=== PATIENT | male | born 1960 | race African-American/Black ===

== ENCOUNTER 2021-02-24 10:21 | Emergency (ER) | payer OTHER ==
[2021-02-24 10:28] VITALS: TEMP 98.4; BMI 20.3
[2021-02-24] MEDS ORDERED: ALBUTEROL SO4 2.5/IPRATROPIUM 0.5 INH SOL 3 ML VIAL.NEB. NEB ONE ×2 (10:51→10:55)
[2021-02-24] MEDS ORDERED: predniSONE 20 MG TABLET (UD) PO ONE (10:51)
[2021-02-24] MEDS ORDERED: predniSONE 20 MG TABLET (UD) ONE (11:15)
[2021-02-24] MEDS ORDERED: AZITHROMYCIN 250 MG TABLET PO ONE (12:44)
[2021-02-24] MEDS ORDERED: AZITHROMYCIN 250 MG TABLET ONE (12:50)
[2021-02-24 12:55] VITALS: BP 141/70; PULSE 93
== END 2021-02-24 13:04 | disposition home or self-care (01) ==
LOC: JER 10:21
PROC: 3E0F7GC Introduction of Other Therapeutic Substance into Respiratory Tract, Via Natural or Artificial Opening (ICD-10-PCS; principal; 2021-02-24)
DX: J45.909 Unspecified asthma, uncomplicated (principal)
CPT/HCPCS: 99284-25

== ENCOUNTER 2023-05-09 09:11 | Emergency (ER) | payer OTHER ==
[2023-05-09 09:39] VITALS: BMI 20.3
[2023-05-09] MEDS ORDERED: ALBUTEROL SO4 2.5/IPRATROPIUM 0.5 INH SOL 3 ML VIAL.NEB. NEB ONE ×2 (09:43→09:47)
[2023-05-09] MEDS ORDERED: AZITHROMYCIN 250 MG TABLET PO ONE (09:52)
[2023-05-09] MEDS ORDERED: predniSONE 20 MG TABLET (UD) PO ONE (09:52)
[2023-05-09] MEDS ORDERED: AZITHROMYCIN 500 MG TABLET ONE (10:02)
[2023-05-09] MEDS ORDERED: predniSONE 20 MG TABLET (UD) ONE (10:02)
[2023-05-09 13:22] VITALS: BP 129/75; PULSE 104; RESP 30; TEMP 100.4
== END 2023-05-09 13:46 | disposition home or self-care (01) ==
LOC: JER 09:11
PROC: 3E0F7GC Introduction of Other Therapeutic Substance into Respiratory Tract, Via Natural or Artificial Opening (ICD-10-PCS; principal; 2023-05-09)
DX: R06.02 Shortness of breath (principal); R05.9 Cough, unspecified; R50.9 Fever, unspecified; J44.1 Chronic obstructive pulmonary disease with (acute) exacerbation; Z20.822 Contact with and (suspected) exposure to COVID-19
CPT/HCPCS: 0241U-QW; 71045-TC-FY; 93005; 93010; 94640; 99285-25

== ENCOUNTER 2023-08-08 07:39 | Inpatient (IN) | payer OTHER ==
[2023-08-08] MEDS ORDERED: DEXAMETHASONE SOD PHOSPHATE 10 MG/1 ML VIAL IVPUSH ONE (08:09)
[2023-08-08] MEDS ORDERED: MAGNESIUM SULF 50% (8.12 MEQ/2 ML-1 GM VIAL) IVPB ONE (08:10)
[2023-08-08] MEDS ORDERED: MAGNESIUM SULFATE IN WATER 2 GM/50 ML IVPB IVPB ONE (08:16)
[2023-08-08] MEDS ORDERED: DEXAMETHASONE SOD PHOSPHATE 10 MG/1 ML VIAL ONE (08:17)
[2023-08-08 08:23] LABS: VENOUS BASE EXCESS 3.9 mmol/L (-2-2); VENOUS O2 SATURATION 92.3 % (70-80); VENOUS PCO2 62.7 mmHg (38-52); VENOUS PH 7.323 (7.310-7.410)
[2023-08-08] MEDS: ALBUTEROL SO4 2.5/IPRATROPIUM 0.5 INH SOL 3 ML VIAL.NEB. NEB SCH (08:29)
[2023-08-08 08:30] LABS: BASO % 0.5 % (0-2.0); EOS % 0.7 % (0-4.5); HEMATOCRIT 38.5 % (35.4-49); HEMOGLOBIN 12.8 GM/dL (11.7-16.9); LYMPH % 7.6 % (8-40); MCH 27.2 pg (25.7-33.7); MCHC 33.2 g/dl (32.0-35.9); MEAN CELL VOLUME 81.9 fl (80-96); MEAN PLT VOLUME 7.5 fl (7.5-11.1); MONO % 10.9 % (3.8-10.2); NEUT % 80.3 % (42.8-82.8); PLATELET COUNT 315 10^3/uL (134-434); RDW 14.9 % (11.9-15.9); WHITE BLOOD COUNT 10.5 K/mm3 (4.0-10.0)
[2023-08-08 08:40] LABS: INR 1.26 (0.83-1.09); PROTHROMBIN TIME (PATIENT) 14.6 SEC (9.7-13.0)
[2023-08-08 08:42] LABS: ACTIVATED PTT 29.1 SECONDS (25.2-36.5)
[2023-08-08 08:49] LABS: POTASSIUM 3.9 mmol/L (3.5-5.1)
[2023-08-08 08:50] LABS: CALCIUM 8.9 mg/dL (8.5-10.1)
[2023-08-08 08:51] LABS: ALBUMIN 2.9 g/dl (3.4-5.0); BLOOD UREA NITROGEN 15.4 mg/dL (7-18)
[2023-08-08 08:52] LABS: MAGNESIUM 1.9 mg/dL (1.8-2.4)
[2023-08-08 08:54] LABS: CREATININE 0.9 mg/dL (0.55-1.3)
[2023-08-08 08:56] LABS: BILIRUBIN,TOTAL 0.4 mg/dL (0.2-1); TOT PROT 7.5 g/dl (6.4-8.2)
[2023-08-08 08:59] LABS: N-TERMINAL BNP 276.3 pg/ml (5-125)
[2023-08-08] MEDS ORDERED: AMPICILLIN NA/SULBACTAM NA 3 GM in SODIUM CHLORIDE 100 ML IVPB ONE (13:03)
[2023-08-08] MEDS ORDERED: AMPICILLIN NA/SULBACTAM NA 3 GM VIAL ONE (13:09)
[2023-08-08] MEDS ORDERED: CEFTRIAXONE 1 GM in DEXTROSE 5%-WATER - 100 ML IVPB ONE (13:14)
[2023-08-08] MEDS ORDERED: AZITHROMYCIN IVPB 500 MG in DEXTROSE 5%-WATER - 250 ML IVPB ONE (13:14)
[2023-08-08] MEDS ORDERED: ALBUTEROL SO4 2.5/IPRATROPIUM 0.5 INH SOL 3 ML VIAL.NEB. NEB PRN (13:34)
[2023-08-08] MEDS ORDERED: CEFTRIAXONE 1 GM/50 ML BAG ONE (14:14)
[2023-08-08] MEDS ORDERED: AZITHROMYCIN IVPB 500 MG/250 ML BAG IVPB ONE (14:32)
[2023-08-08] MEDS ORDERED: ACETAMINOPHEN 500 MG TABLET (FP) PO PRN (14:42)
[2023-08-08] MEDS ORDERED: ACETAMINOPHEN 500 MG TABLET (FP) ONE (14:45)
[2023-08-08] MEDS ORDERED: PIPERACILLIN/TAZOB 3.375 GM 3.375 GM/50 ML BAG IVPB ONE (17:36)
[2023-08-08] MEDS ORDERED: methylPREDNISolone NA SUCC 40 MG/1 ML VIAL ONE (17:36)
[2023-08-08] MEDS: PIPERACILLIN/TAZOB 3.375 GM 3.375 GM in DEXTROSE 5%-WATER - 50 ML IVPB SCH (17:42)
[2023-08-08] MEDS: methylPREDNISolone NA SUCC 40 MG/1 ML VIAL IVPUSH SCH (17:42)
[2023-08-08] MEDS ORDERED: HEPARIN NA (PORCINE) 5,000 UNITS/ML 1ML VIAL ONE (22:17)
[2023-08-08] MEDS ORDERED: DOXYCYCLINE HYCLATE 100 MG VIAL ONE (22:17)
[2023-08-08] MEDS: DOXYCYCLINE INJECTION 100 MG in DEXTROSE 5%-WATER 100 ML IVPB SCH (22:30)
[2023-08-08] MEDS: HEPARIN NA (PORCINE) 5,000 UNITS/ML 1ML VIAL SQ SCH (22:30)
[2023-08-09] MEDS ORDERED: PIPERACILLIN/TAZOB 3.375 GM 3.375 GM/50 ML BAG IVPB ONE (01:57)
[2023-08-09] MEDS ORDERED: methylPREDNISolone NA SUCC 40 MG/1 ML VIAL ONE (01:57)
[2023-08-09] MEDS ORDERED: PIPERACILLIN/TAZOB 3.375 GM 3.375 GM in DEXTROSE 5%-WATER - 50 ML IVPB SCH (02:00)
[2023-08-09] MEDS: methylPREDNISolone NA SUCC 40 MG/1 ML VIAL IVPUSH SCH ×3 (02:08→17:32)
[2023-08-09] MEDS: PIPERACILLIN/TAZOB 3.375 GM 3.375 GM in DEXTROSE 5%-WATER - 50 ML IVPB SCH ×3 (02:08→17:32)
[2023-08-09 08:04] LABS: POTASSIUM 4.8 mmol/L (3.5-5.1)
[2023-08-09 08:05] LABS: HEMATOCRIT 39.2 % (35.4-49); HEMOGLOBIN 12.4 GM/dL (11.7-16.9); MCH 26.5 pg (25.7-33.7); MCHC 31.6 g/dl (32.0-35.9); MEAN PLT VOLUME 7.8 fl (7.5-11.1); PLATELET COUNT 336 10^3/uL (134-434); RBC 4.67 M/mm3 (4.00-5.60); RDW 14.8 % (11.9-15.9); WHITE BLOOD COUNT 12.5 K/mm3 (4.0-10.0)
[2023-08-09 08:09] LABS: CALCIUM 9.3 mg/dL (8.5-10.1)
[2023-08-09] MEDS ORDERED: ALBUTEROL SO4 2.5/IPRATROPIUM 0.5 INH SOL 3 ML VIAL.NEB. NEB ONE (08:10)
[2023-08-09 08:13] LABS: CREATININE 0.9 mg/dL (0.55-1.3)
[2023-08-09 09:04] LABS: ANISOCYTOSIS 1+; MACROCYTOSIS 0
[2023-08-09] MEDS: ALBUTEROL SO4 2.5/IPRATROPIUM 0.5 INH SOL 3 ML VIAL.NEB. NEB SCH ×3 (10:00→20:15)
[2023-08-09] MEDS ORDERED: ALBUTEROL SO4 0.083% IH SOL 2.5 MG/3 ML VIAL.NEB. NEB PRN (10:33)
[2023-08-09] MEDS: DOXYCYCLINE INJECTION 100 MG in DEXTROSE 5%-WATER 100 ML IVPB SCH ×2 (10:48→22:46)
[2023-08-09] MEDS: HEPARIN NA (PORCINE) 5,000 UNITS/ML 1ML VIAL SQ SCH ×2 (10:49→22:45)
[2023-08-09] MEDS: BUDESONIDE/FORMETEROL FUMARATE 160/4.5 mcg INHALER IH SCH ×2 (12:10→22:45)
[2023-08-09 14:36] VITALS: BMI 21.0
[2023-08-09] MEDS ORDERED: VANCOMYCIN/WATER FOR INJ (PEG) 1,000 MG/200 ML BAG IVPB SCH (15:00)
[2023-08-10] MEDS: PIPERACILLIN/TAZOB 3.375 GM 3.375 GM in DEXTROSE 5%-WATER - 50 ML IVPB SCH ×3 (02:09→17:53)
[2023-08-10] MEDS: methylPREDNISolone NA SUCC 40 MG/1 ML VIAL IVPUSH SCH ×3 (02:09→17:53)
[2023-08-10] MEDS: ALBUTEROL SO4 2.5/IPRATROPIUM 0.5 INH SOL 3 ML VIAL.NEB. NEB SCH ×2 (08:56→12:03)
[2023-08-10] MEDS ORDERED: FUROSEMIDE 40 MG/4 ML INJECTABLE VIAL IVPUSH ONE (09:53)
[2023-08-10] MEDS: HEPARIN NA (PORCINE) 5,000 UNITS/ML 1ML VIAL SQ SCH ×2 (10:51→22:13)
[2023-08-10] MEDS: BUDESONIDE/FORMETEROL FUMARATE 160/4.5 mcg INHALER IH SCH ×2 (10:53→22:13)
[2023-08-10] MEDS: DOXYCYCLINE INJECTION 100 MG in DEXTROSE 5%-WATER 100 ML IVPB SCH (12:11)
[2023-08-10] MEDS: TIOTROPIUM BROMIDE 2.5 MCG (SPIRIVA) RESPIMAT INHALER IH SCH (14:21)
[2023-08-11] MEDS: PIPERACILLIN/TAZOB 3.375 GM 3.375 GM in DEXTROSE 5%-WATER - 50 ML IVPB SCH ×3 (01:25→17:41)
[2023-08-11] MEDS: methylPREDNISolone NA SUCC 40 MG/1 ML VIAL IVPUSH SCH (01:25)
[2023-08-11] MEDS: ALBUTEROL SO4 0.083% IH SOL 2.5 MG/3 ML VIAL.NEB. NEB SCH ×4 (09:10→20:14)
[2023-08-11] MEDS: PANTOPRAZOLE 40 MG TABLET PO SCH (09:58)
[2023-08-11] MEDS: ENOXAPARIN NA (PORCINE) 40 MG/0.4 ML DISP.SYRIN SQ SCH ×2 (09:59→10:51)
[2023-08-11] MEDS: predniSONE 20 MG TABLET (UD) PO SCH ×2 (09:59→21:52)
[2023-08-11] MEDS: LACTOBACILLUS ACIDOPHILUS 1 TABLET PO SCH (09:59)
[2023-08-11] MEDS: TIOTROPIUM BROMIDE 2.5 MCG (SPIRIVA) RESPIMAT INHALER IH SCH (10:00)
[2023-08-11] MEDS: BUDESONIDE/FORMETEROL FUMARATE 160/4.5 mcg INHALER IH SCH ×2 (10:00→10:09)
[2023-08-11 10:24] LABS: HEMATOCRIT 43.8 % (35.4-49); HEMOGLOBIN 14.5 GM/dL (11.7-16.9); MCH 27.2 pg (25.7-33.7); MEAN CELL VOLUME 82.4 fl (80-96); MEAN PLT VOLUME 7.5 fl (7.5-11.1); PLATELET COUNT 393 10^3/uL (134-434); RBC 5.32 M/mm3 (4.00-5.60); RDW 14.9 % (11.9-15.9); WHITE BLOOD COUNT 15.7 K/mm3 (4.0-10.0)
[2023-08-11 11:07] LABS: ANISOCYTOSIS 0; MACROCYTOSIS 0
[2023-08-11 11:41] LABS: ALBUMIN 3.2 g/dl (3.4-5.0); BILIRUBIN,TOTAL 0.3 mg/dL (0.2-1); BLOOD UREA NITROGEN 25.2 mg/dL (7-18); CALCIUM 10.2 mg/dL (8.5-10.1); CREATININE 1.1 mg/dL (0.55-1.3); MAGNESIUM 2.6 mg/dL (1.8-2.4); PHOSPHOROUS 5.1 mg/dL (2.5-4.9); POTASSIUM 4.5 mmol/L (3.5-5.1); TOT PROT 8.6 g/dl (6.4-8.2)
[2023-08-11] MEDS ORDERED: LACTATED RINGERS SOLUTION 1,000 ML/1,000 ML INFUS.BAG IV SCH (12:15)
[2023-08-11] MEDS: BUDESONIDE 0.25 MG/2ML INH SUSP VIAL NEB SCH ×2 (18:30→20:15)
[2023-08-12] MEDS: PIPERACILLIN/TAZOB 3.375 GM 3.375 GM in DEXTROSE 5%-WATER - 50 ML IVPB SCH ×3 (01:26→18:19)
[2023-08-12] MEDS: ALBUTEROL SO4 0.083% IH SOL 2.5 MG/3 ML VIAL.NEB. NEB SCH ×4 (07:45→20:48)
[2023-08-12] MEDS: BUDESONIDE 0.25 MG/2ML INH SUSP VIAL NEB SCH ×2 (07:45→20:48)
[2023-08-12] MEDS: TIOTROPIUM BROMIDE 2.5 MCG (SPIRIVA) RESPIMAT INHALER IH SCH (09:37)
[2023-08-12] MEDS: predniSONE 20 MG TABLET (UD) PO SCH (09:37)
[2023-08-12] MEDS: ENOXAPARIN NA (PORCINE) 40 MG/0.4 ML DISP.SYRIN SQ SCH (09:37)
[2023-08-12] MEDS: PANTOPRAZOLE 40 MG TABLET PO SCH (09:37)
[2023-08-12] MEDS: LACTOBACILLUS ACIDOPHILUS 1 TABLET PO SCH (09:37)
[2023-08-12 11:11] LABS: HEMATOCRIT 40.7 % (35.4-49); HEMOGLOBIN 12.9 GM/dL (11.7-16.9); MCH 26.7 pg (25.7-33.7); MCHC 31.6 g/dl (32.0-35.9); MEAN CELL VOLUME 84.6 fl (80-96); MEAN PLT VOLUME 7.8 fl (7.5-11.1); PLATELET COUNT 348 10^3/uL (134-434); RBC 4.81 M/mm3 (4.00-5.60); WHITE BLOOD COUNT 11.9 K/mm3 (4.0-10.0)
[2023-08-12 11:29] LABS: POTASSIUM 4.8 mmol/L (3.5-5.1)
[2023-08-12 12:22] LABS: ANISOCYTOSIS 0; MACROCYTOSIS 0
[2023-08-12 12:43] LABS: BLOOD UREA NITROGEN 27.4 mg/dL (7-18); CALCIUM 9.3 mg/dL (8.5-10.1)
[2023-08-12 12:44] LABS: ALBUMIN 2.9 g/dl (3.4-5.0); MAGNESIUM 2.4 mg/dL (1.8-2.4)
[2023-08-12 12:46] LABS: CREATININE 1.1 mg/dL (0.55-1.3)
[2023-08-12 12:48] LABS: BILIRUBIN,TOTAL 0.2 mg/dL (0.2-1); PHOSPHOROUS 4.1 mg/dL (2.5-4.9); TOT PROT 7.1 g/dl (6.4-8.2)
[2023-08-12] MEDS ORDERED: LACTATED RINGERS SOLUTION 1,000 ML/1,000 ML INFUS.BAG IV SCH (18:15)
[2023-08-13] MEDS: PIPERACILLIN/TAZOB 3.375 GM 3.375 GM in DEXTROSE 5%-WATER - 50 ML IVPB SCH ×2 (01:40→10:58)
[2023-08-13] MEDS: ALBUTEROL SO4 0.083% IH SOL 2.5 MG/3 ML VIAL.NEB. NEB SCH ×4 (07:44→20:30)
[2023-08-13] MEDS: BUDESONIDE 0.25 MG/2ML INH SUSP VIAL NEB SCH ×2 (07:44→20:30)
[2023-08-13] MEDS ORDERED: predniSONE 20 MG TABLET (UD) PO SCH (10:00)
[2023-08-13 10:04] LABS: BASO % 0.1 % (0-2.0); HEMATOCRIT 38.8 % (35.4-49); HEMOGLOBIN 12.8 GM/dL (11.7-16.9); LYMPH % 12.3 % (8-40); MCH 27.4 pg (25.7-33.7); MCHC 33.1 g/dl (32.0-35.9); MEAN CELL VOLUME 82.8 fl (80-96); MEAN PLT VOLUME 7.5 fl (7.5-11.1); NEUT % 79.6 % (42.8-82.8); PLATELET COUNT 290 10^3/uL (134-434); RBC 4.69 M/mm3 (4.00-5.60); RDW 15.1 % (11.9-15.9); WHITE BLOOD COUNT 9.8 K/mm3 (4.0-10.0)
[2023-08-13 10:20] LABS: POTASSIUM 3.8 mmol/L (3.5-5.1)
[2023-08-13 10:22] LABS: CALCIUM 9.1 mg/dL (8.5-10.1)
[2023-08-13 10:23] LABS: ALBUMIN 2.8 g/dl (3.4-5.0); BLOOD UREA NITROGEN 22.5 mg/dL (7-18); MAGNESIUM 2.3 mg/dL (1.8-2.4)
[2023-08-13 10:26] LABS: PHOSPHOROUS 3.2 mg/dL (2.5-4.9)
[2023-08-13 10:28] LABS: BILIRUBIN,TOTAL 0.3 mg/dL (0.2-1); TOT PROT 6.8 g/dl (6.4-8.2)
[2023-08-13] MEDS: predniSONE 40 MG, predniSONE 10 MG PO SCH (10:58)
[2023-08-13] MEDS: ENOXAPARIN NA (PORCINE) 40 MG/0.4 ML DISP.SYRIN SQ SCH (10:58)
[2023-08-13] MEDS: PANTOPRAZOLE 40 MG TABLET PO SCH (10:58)
[2023-08-13] MEDS: LACTOBACILLUS ACIDOPHILUS 1 TABLET PO SCH (10:58)
[2023-08-13] MEDS: TIOTROPIUM BROMIDE 2.5 MCG (SPIRIVA) RESPIMAT INHALER IH SCH (10:59)
[2023-08-13] MEDS: AMOX TR/POT CLAV 875MG/125MG TABLETS (FP) PO SCH (18:01)
[2023-08-14] MEDS: ALBUTEROL SO4 0.083% IH SOL 2.5 MG/3 ML VIAL.NEB. NEB SCH ×4 (07:25→20:05)
[2023-08-14] MEDS: BUDESONIDE 0.25 MG/2ML INH SUSP VIAL NEB SCH ×2 (07:25→20:05)
[2023-08-14] MEDS: AMOX TR/POT CLAV 875MG/125MG TABLETS (FP) PO SCH ×2 (09:54→18:24)
[2023-08-14] MEDS: PANTOPRAZOLE 40 MG TABLET PO SCH (09:54)
[2023-08-14] MEDS: predniSONE 40 MG, predniSONE 10 MG PO SCH (09:54)
[2023-08-14] MEDS: ENOXAPARIN NA (PORCINE) 40 MG/0.4 ML DISP.SYRIN SQ SCH (09:54)
[2023-08-14] MEDS: LACTOBACILLUS ACIDOPHILUS 1 TABLET PO SCH (09:54)
[2023-08-14] MEDS: TIOTROPIUM BROMIDE 2.5 MCG (SPIRIVA) RESPIMAT INHALER IH SCH (09:54)
[2023-08-15] MEDS: ALBUTEROL SO4 0.083% IH SOL 2.5 MG/3 ML VIAL.NEB. NEB SCH ×2 (07:45→11:20)
[2023-08-15] MEDS: BUDESONIDE 0.25 MG/2ML INH SUSP VIAL NEB SCH (07:45)
[2023-08-15 09:27] VITALS: BP 114/65; PULSE 100; RESP 18; TEMP 97.8
[2023-08-15] MEDS: predniSONE 40 MG, predniSONE 10 MG PO SCH (09:37)
[2023-08-15] MEDS: ENOXAPARIN NA (PORCINE) 40 MG/0.4 ML DISP.SYRIN SQ SCH ×2 (09:38→09:42)
[2023-08-15] MEDS: LACTOBACILLUS ACIDOPHILUS 1 TABLET PO SCH (09:38)
[2023-08-15] MEDS: PANTOPRAZOLE 40 MG TABLET PO SCH (09:38)
[2023-08-15] MEDS: AMOX TR/POT CLAV 875MG/125MG TABLETS (FP) PO SCH (09:38)
[2023-08-15] MEDS: TIOTROPIUM BROMIDE 2.5 MCG (SPIRIVA) RESPIMAT INHALER IH SCH (09:42)
[2023-08-16] MEDS ORDERED: predniSONE 20 MG TABLET (UD) PO SCH (10:00)
== END 2023-08-15 12:42 | disposition home or self-care (01) | DRG 190 ==
LOC: JER 07:39 → JERBED 10:04 → J5S 08-09 09:06
PROVIDERS: ADMIT Internal Medicine; ATTEND Internal Medicine
DX: J44.1 Chronic obstructive pulmonary disease with (acute) exacerbation (principal); J96.01 Acute respiratory failure with hypoxia; L02.01 Cutaneous abscess of face; L03.211 Cellulitis of face; D86.0 Sarcoidosis of lung; E83.52 Hypercalcemia; Z86.11 Personal history of tuberculosis
CPT/HCPCS: 0241U-QW; 36415; 70487-TC; 71045-TC-FY; 71250-TC; 80048; 80053; 82728; 82803; 83540; 83550; 83605; 83735; 83880; 84100; 84484; 85025; 85610; 85730; 87070; 87205; 93005; 93010; 93306-TC; 94010; 94640; 94761; 97116-GP; 97161-GP; 99285-25; J1100; J1644; Q9967

== ENCOUNTER 2023-10-31 16:03 | Observation (INO) | payer OTHER ==
[2023-10-31] MEDS: ALBUTEROL SO4 2.5/IPRATROPIUM 0.5 INH SOL 3 ML VIAL.NEB. NEB SCH ×3 (16:47→23:12)
[2023-10-31] MEDS: methylPREDNISolone NA SUCC 125 MG/2 ML VIAL IVPUSH ONE (16:47)
[2023-10-31 16:49] LABS: VENOUS BASE EXCESS 3.1 mmol/L (-2-2); VENOUS O2 SATURATION 33.1 % (70-80); VENOUS PCO2 66.3 mmHg (38-52); VENOUS PH 7.296 (7.310-7.410)
[2023-10-31] MEDS ORDERED: methylPREDNISolone NA SUCC 125 MG/2 ML VIAL ONE (16:49)
[2023-10-31] MEDS ORDERED: ALBUTEROL SO4 2.5/IPRATROPIUM 0.5 INH SOL 3 ML VIAL.NEB. NEB ONE (16:49)
[2023-10-31 16:57] LABS: BASO % 0.7 % (0-2.0); EOS % 3.6 % (0-4.5); HEMATOCRIT 39.5 % (35.4-49); LYMPH % 35.7 % (8-40); MCH 28.2 pg (25.7-33.7); MEAN CELL VOLUME 85.7 fl (80-96); MEAN PLT VOLUME 7.6 fl (7.5-11.1); MONO % 10.4 % (3.8-10.2); NEUT % 49.6 % (42.8-82.8); PLATELET COUNT 237 10^3/uL (134-434); RBC 4.61 M/mm3 (4.00-5.60); RDW 15.2 % (11.9-15.9); WHITE BLOOD COUNT 4.8 K/mm3 (4.0-10.0)
[2023-10-31 17:02] LABS: INR 1.07 (0.83-1.09); PROTHROMBIN TIME (PATIENT) 12.4 SEC (9.7-13.0)
[2023-10-31 17:05] LABS: ACTIVATED PTT 31.1 SECONDS (25.2-36.5)
[2023-10-31 17:10] LABS: POTASSIUM 4.2 mmol/L (3.5-5.1)
[2023-10-31 17:13] LABS: CALCIUM 8.7 mg/dL (8.5-10.1)
[2023-10-31 17:14] LABS: ALBUMIN 3.8 g/dl (3.4-5.0)
[2023-10-31 17:18] LABS: BILIRUBIN,TOTAL 0.4 mg/dL (0.2-1); TOT PROT 7.5 g/dl (6.4-8.2)
[2023-10-31] MEDS ORDERED: ALBUTEROL SO4 0.083% IH SOL 2.5 MG/3 ML VIAL.NEB. NEB ONE (17:19)
[2023-10-31] MEDS: BUDESONIDE/FORMETEROL FUMARATE 160/4.5 mcg INHALER IH SCH (23:12)
[2023-10-31] MEDS: HEPARIN NA (PORCINE) 5,000 UNITS/ML 1ML VIAL SQ SCH (23:12)
[2023-11-01 02:28] VITALS: BMI 19.1
[2023-11-01] MEDS: BUDESONIDE/FORMETEROL FUMARATE 160/4.5 mcg INHALER IH SCH (06:14)
[2023-11-01] MEDS ORDERED: BUDESONIDE/FORMETEROL FUMARATE 160/4.5 mcg INHALER IH SCH (10:00)
[2023-11-01] MEDS: methylPREDNISolone NA SUCC 40 MG/1 ML VIAL IVPUSH SCH (10:08)
[2023-11-01] MEDS: PANTOPRAZOLE 40 MG TABLET PO SCH (10:08)
[2023-11-01 16:02] VITALS: RESP 20
[2023-11-02] MEDS: ENOXAPARIN NA (PORCINE) 40 MG/0.4 ML DISP.SYRIN SQ SCH (09:29)
[2023-11-02 10:52] VITALS: BP 127/67; PULSE 88; TEMP 98.3
== END 2023-11-02 11:08 | disposition home or self-care (01) ==
LOC: JER 16:03 → JERBED 17:41 → J8W 11-01 01:32
PROVIDERS: ADMIT Internal Medicine; ATTEND Nurse Practitioner Family
PROC: 3E0F7GC Introduction of Other Therapeutic Substance into Respiratory Tract, Via Natural or Artificial Opening (ICD-10-PCS; principal; 2023-10-31)
PROC: 3E033GC Introduction of Other Therapeutic Substance into Peripheral Vein, Percutaneous Approach (ICD-10-PCS; 2023-10-31)
DX: J44.1 Chronic obstructive pulmonary disease with (acute) exacerbation (principal); D86.9 Sarcoidosis, unspecified; Z91.148 Patient's other noncompliance with medication regimen for other reason; Z29.89 Encounter for other specified prophylactic measures; Z86.11 Personal history of tuberculosis
CPT/HCPCS: 0241U-QW; 36415; 71046-TC-FY; 80053; 82803; 84484; 85025; 85610; 85730; 86850; 86900; 86901; 93005; 93010; 94640; 96374; 96376; 99285-25; G0378; J1644

== ENCOUNTER 2025-03-13 10:26 | Emergency (ER) | payer OTHER ==
[2025-03-13 11:24] LABS: VENOUS BASE EXCESS 0.7 mmol/L (-2-2); VENOUS O2 SATURATION 55.4 % (70-80); VENOUS PCO2 55.8 mmHg (38-52); VENOUS PH 7.319 (7.310-7.410)
[2025-03-13 11:26] LABS: ABSOLUTE IMMATURE GRANULOCYTES 0.04 x10^3/uL (0.0-0.031); BASOPHILS # 0.02 x10^3/uL (0.01-0.08); EOSINOPHIL % 1.7 % (0.8-7.0); EOSINOPHILS # 0.11 x10^3/uL (0.04-0.54); MCHC 32.5 g/dl (32.3-36.5); MEAN CELL VOLUME 84.9 fl (79.0-92.2); MEAN PLT VOLUME 9.5 fl (9.4-12.4); MONOCYTE % 4.7 % (5.3-12.2); PLATELET COUNT 267 x10^3/uL (163-337)
[2025-03-13 11:31] VITALS: BMI 21.2
[2025-03-13] MEDS: ALBUTEROL SO4 2.5/IPRATROPIUM 0.5 INH SOL 3 ML VIAL.NEB. NEB SCH (11:35)
[2025-03-13 11:52] LABS: POTASSIUM 4.3 mmol/L (3.5-5.1)
[2025-03-13 11:53] LABS: CALCIUM 9.1 mg/dL (8.5-10.1)
[2025-03-13 11:54] LABS: ALBUMIN 3.5 g/dl (3.4-5.0); BLOOD UREA NITROGEN 13.6 mg/dL (7-18); MAGNESIUM 2.1 mg/dL (1.8-2.4)
[2025-03-13 11:59] LABS: BILIRUBIN,TOTAL 0.2 mg/dL (0.2-1); TOT PROT 7.1 g/dl (6.4-8.2)
[2025-03-13] MEDS ORDERED: ROCURONIUM BROMIDE 50 MG/5 ML VIAL ONE (12:10)
[2025-03-13] MEDS ORDERED: ROCURONIUM BROMIDE 50 MG/5 ML SYRINGE ONE (12:10)
[2025-03-13] MEDS ORDERED: MAGNESIUM 1GM/D5W - 1 GM/100 ML IVPB IVPB ONE (13:37)
[2025-03-13] MEDS: MAGNESIUM SULF 50% (8.12 MEQ/2 ML-1 GM VIAL) IVPB ONE (13:46)
[2025-03-13] MEDS ORDERED: AZITHROMYCIN IVPB 500 MG/250 ML BAG IVPB ONE (14:55)
[2025-03-13] MEDS: AZITHROMYCIN IVPB 500 MG in DEXTROSE 5%-WATER - 250 ML IVPB ONE (15:51)
[2025-03-13 16:35] VITALS: TEMP 97.9
[2025-03-13 18:02] VITALS: BP 126/78; PULSE 75; RESP 16
== END 2025-03-13 18:03 | disposition home or self-care (01) ==
LOC: JER 10:26
PROC: 3E03329 Introduction of Other Anti-infective into Peripheral Vein, Percutaneous Approach (ICD-10-PCS; principal; 2025-03-13)
PROC: 3E033GC Introduction of Other Therapeutic Substance into Peripheral Vein, Percutaneous Approach (ICD-10-PCS; 2025-03-13)
PROC: 3E0F7GC Introduction of Other Therapeutic Substance into Respiratory Tract, Via Natural or Artificial Opening (ICD-10-PCS; 2025-03-13)
PROC: 3E0F7GC Introduction of Other Therapeutic Substance into Respiratory Tract, Via Natural or Artificial Opening (ICD-10-PCS; 2025-03-13)
DX: R06.02 Shortness of breath (principal); J02.9 Acute pharyngitis, unspecified; R05.9 Cough, unspecified
CPT/HCPCS: 0241U-QW; 36415; 71046-TC-FY; 71260-TC; 80053; 82803; 83735; 84484; 85025; 93005; 93010; 94640; 96365; 96375; 99285-25; Q9967